=== PATIENT | male | born 1995 | race Caucasian/White ===

== ENCOUNTER 2020-02-22 10:41 | Emergency (ER) | payer OTHER, MEDICAID, SELFPAY ==
[2020-02-22 10:43] VITALS: BP 167/119; PULSE 102; RESP 17; TEMP 37.1; O2SAT 100; BMI 30.5
[2020-02-22] MEDS: 0.9% Normal Saline 1,000 ML 1000 ML IV (11:10)
[2020-02-22] MEDS: Ondansetron 4 MG/2 ML Vial IV (11:15)
[2020-02-22] MEDS: Morphine 4 MG/ML Syringe IV (11:16)
[2020-02-22] MEDS: Ketorolac 15 MG/ML Vial IV (11:16)
[2020-02-22 11:41] VITALS: BP 187/103; PULSE 104; RESP 18
[2020-02-22] MEDS: HYDROmorphone 1 MG/ML Syringe IV (11:57)
--- NOTE | 2020-02-22 13:11 | ED.VISSUMM ---
- ER Visit Summary Date of Service: 02/22/20 Chief Complaint: Left flank pain History of Present Illness: The patient is a [address] Garcia. He does have a history of kidney stones. He reports he has left flank pain that began abruptly yesterday evening. Says sharp, throbbing pain is 10 of 10 in severity currently and at worst. Is worsened by nothing. Is taken Advil without relief. Is had nausea vomiting. No dysuria or frequency. No hematuria. His last bowel was yesterday. No matter medication. Patient was seen at [facility] emergency department. He had a work-up undertaken that showed him to have a large left ureteral stone. He states that they offered him admission there, but he lives in [place] and wanted to come down here. He did not get his medications filled on the way here. Physical Examination: Vitals: Stable. Afebrile. General: Well-nourished and well-developed. Head: Normocephalic atraumatic. Neck: Supple, no lymphadenopathy. No JVD. Nontender. Cardiovascular: Regular rate and rhythm. No murmurs. Respiratory: No respiratory distress. Clear to auscultation bilaterally. Abdominal: Soft, mild left upper quadrant tenderness palpation, nondistended, normal bowel sounds. No guarding, rebound, or peritoneal signs. Back: Mild left CVA tenderness. Extremities: Nontender, no edema. Skin: Normal color, no rash. Neurologic: Alert and oriented ?3. Cranial nerves II through XII are intact. Normal strength and sensation. Psych: Normal affect. Test Results: Labs from [facility] showed a CBC with a white count of 12.4. Chem-7 with a glucose of 110 and creatinine 1.27. LFTs were marked for total protein of 8.6. UA showed 2-5 white blood cells, 7-10 red blood cells, 6-[address] showed moderate left hydronephrosis with a 1.3 cm stone in the proximal ureter at the level of L3. Also showed a 1.5 cm area of inflammatory stranding adjacent to the proximal sigmoid colon, possibly epiploic appendagitis. Emergency Department Course and Treatment: Patient had an IV placed. He is given morphine, Dilaudid, Toradol, and Zofran IV. He is resting comfortably and would like to go home. I discussed him that he will not pass the stone on his own. Treatment Plan: Patient was discussed with Dr. Salcedo. He will be discharged with Percocet, naproxen, Zofran, and Cipro which he got at [facility]. Instructed to call Dr. Salcedo in 2 days to be seen in the office and set up surgery. Return to the emergency department for any worsening symptoms. Disposition: To home in improved and stable condition. Impression: 1 1. Left ureterolithiasis. This note was generated with [email or web address] dictation software. It may contain incorrect words, spelling, and punctuation that were not noted in review of the chart prior to signing ED Disposition - Plan for ED Patient: Disposition: Home or Assisted Living Instructions: ED Renal Stone w Colic Prescriptions: Naproxen [Naprosyn] 500 mg PO BID #14 tab Prescription Printed Ondansetron [Zofran Odt] 4 mg PO Q8H PRN PRN #10 tab PRN Reason: Nausea Prescription Printed Referrals: Franko Salcedo MD [STAFF PHYSICIAN] - 2 Days
[2020-02-22 13:30] VITALS: RESP 16
== END 2020-02-22 13:32 | disposition home or self-care (01) ==
LOC: ED 11:46
PROVIDERS: Emergency Provider Emergency Medicine; PCP Student in an Organized Health Care Education/Training Program
DX: N13.2 Hydronephrosis with renal and ureteral calculous obstruction (principal); I10 Essential (primary) hypertension; F41.9 Anxiety disorder, unspecified; F32.9 Major depressive disorder, single episode, unspecified; Z87.442 Personal history of urinary calculi; Z79.899 Other long term (current) drug therapy; F17.200 Nicotine dependence, unspecified, uncomplicated
CPT/HCPCS: 96361; 96374; 96375; 99283; J7030; J2405

== ENCOUNTER 2020-02-27 02:14 | Emergency (ER) | payer OTHER, MEDICAID, SELFPAY ==
[2020-02-27 02:16] VITALS: BP 188/122; PULSE 95; RESP 20; TEMP 37; O2SAT 98; BMI 31.4
[2020-02-27] MEDS: Ondansetron 4 MG/2 ML Vial IV (02:35)
[2020-02-27] MEDS: 0.9% Normal Saline 1,000 ML 1000 ML IV (02:35)
[2020-02-27] MEDS: HYDROmorphone 1 MG/ML Syringe IV ×2 (02:35→03:47)
--- NOTE | 2020-02-27 02:37 | ED.VISSUMM ---
- ER Visit Summary Date of Service: 02/27/20 Chief Complaint: Left flank pain History of Present Illness: The patient is a [address] Garcia and Dr. Salcedo. He has a 1.3 cm left ureteral stone that was diagnosed 5 days ago at [facility] in [place]. Has an appointment to see Dr. Salcedo today. States that he ran out of Percocet 2 days ago. He has sharp pain that is currently 8 out of 10 in severity. It is 10 out of 10 at worst. Is relieved by Percocet. Is worsened by nothing. Is had nausea without vomiting. No diarrhea. His last bowel was 2 days ago. Normal hematochezia. No dysuria or frequency. No fever or chills. Physical Examination: Vitals: Stable. Afebrile. General: Well-nourished and well-developed. Head: Normocephalic atraumatic. Neck: Supple, no lymphadenopathy. No JVD. Nontender. Cardiovascular: Regular rate and rhythm. No murmurs. Respiratory: No respiratory distress. Clear to auscultation bilaterally. Abdominal: Soft, nontender, nondistended, normal bowel sounds. No guarding, rebound, or peritoneal signs. Back: Mild left CVA tenderness to percussion. Extremities: Nontender, no edema. Skin: Normal color, no rash. Neurologic: Alert and oriented ?3. Cranial nerves II through XII are intact. Normal strength and sensation. Psych: Normal affect. Test Results: CBC shows white count 12.9 with 17 segmented neutrophils and 13 monocytes. Chem-7 shows a chloride 109, glucose 109, creatinine 1.8. This was 1.275 days ago. UA is negative. Emergency Department Course and Treatment: Patient had an IV placed. Is given liter normal saline. He was given Zofran and Dilaudid IV. He is resting more comfortably. Treatment Plan: Patient will be discharged prescription for 12 more Percocet and Zofran.. Instructed to follow-up Dr. Salcedo today as previously scheduled. Return to the emergency department for any worsening symptoms. Disposition: To home in improved and stable condition. Impression: 1. Left ureterolithiasis. This note was generated with [employer] software. It may contain incorrect words, spelling, and punctuation that were not noted in review of the chart prior to signing ED Disposition - Plan for ED Patient: Instructions: ED Renal Stone w Colic Prescriptions: Oxycodone HCl/Acetaminophen [Percocet 5/325] 1 tab PO Q6H PRN PRN 3 Days #12 tab PRN Reason: Pain Prescription Printed Ondansetron [Zofran Odt] 4 mg PO Q8H PRN PRN #10 tab PRN Reason: Nausea Prescription Printed Referrals: Franko Salcedo MD [STAFF PHYSICIAN] - Keep Boris appointment
[2020-02-27 02:48] LABS: Bacteria 0 SEEN /hpf (None Seen); Mucous, Urine 0 SEEN /hpf (<or=2+)
[2020-02-27 02:49] LABS: Absolute Lymphocyte Count 2.23 X10^3/uL (0.83-4.51); Absolute Neutrophil Count 8.6 X10^3/uL (2.0-7.7); Basophil# 0.05 X10^3/uL; Basophil% 0.4 % (0-1); Eosinophil# 0.22 X10^3/uL; Eosinophils% 1.7 % (0-5); Hematocrit 42.9 % (40-54); Hemoglobin 14.5 g/dL (13.0-16.5); Lymphocyte # 2.23 X10^3/ul (4.0); Lymphocyte % 17.4 % (19-41); Mean Corp Hgb Conc 33.8 g/dL (32-36); Mean Corpuscular Hgb 30.9 pg (27.0-32.0); Mean Corpuscular Volume 91.5 fL (80-94); Monocyte# 1.65 X10^3/uL; Monocyte% 12.8 % (0-10); NRBC Flagged by Analyzer 0 % (0-5); Neutrophil # 8.62 X10^3/uL (2.7-7.7); Neutrophil % 67.1 % (47-70); POSITIVE DIFFERENTIAL YES; Platelet Count 276 K/mm3 (150-450); RBC Distribution Width CV 12.5 % (11.6-14.6); RBC Distribution Width SD 41.2 fl (35.1-43.9); Red Blood Count 4.69 M/mm3 (4.6-6.2); White Blood Count 12.9 K/mm3 (4.4-11.0)
[2020-02-27 02:50] LABS: Differential Indicated SCAN CRITERIA MET
[2020-02-27 02:51] LABS: Color, Urine Yellow (Yellow); Glucose, Dipstick Normal (Normal); Ketone-Dipstick Negative (Negative); Leukocyte Esterase-Dipstick Negative /ul (Negative); Nitrite-Dipstick Negative (Negative); Occult Blood-Urine Negative /ul (Negative); Protein-Dipstick 15 mg/dl (Negative); Urine Bilirubin Dipstick Negative (Negative); Urine Clarity Sl. Cloudy (Clear); Urine Urobilinogen Normal (Normal)
[2020-02-27 03:03] LABS: Anion Gap 3 (5-15); BUN 17 mg/dL (7-18); BUN/Creat Ratio 9.4 RATIO (10-20); Calcium,Total 9.2 mg/dL (8.5-10.1); Chloride 108 mmol/L (98-107); EST Glomerular Filtration Rate 49 mL/min (>60); Est Glom Filt Rate - Afr Amer 59 mL/min (>60); Estimated Creatinine Clearance 72.94 ml/min; Glucose 109 mg/dL (74-106); Potassium 3.6 mmol/L (3.5-5.1); Sodium Level 139 mmol/L (136-145)
[2020-02-27 03:18] LABS: Red Blood Cells-Urine 0-5 SEEN /hpf (0-5); Squamous Epithelial Cells - UA 0-5 SEEN /hpf (0-5); White Blood Cells 0-5 SEEN /hpf (0-5)
[2020-02-27 03:42] LABS: Reactive Lymphocyte 1+
[2020-02-27 04:28] VITALS: PULSE 92; RESP 18; O2SAT 98
[2020-02-27 05:09] VITALS: BP 168/90; PULSE 89; RESP 18; O2SAT 97
[2020-02-27 10:30] LABS: Pathologist Review Reviewed
== END 2020-02-27 05:10 | disposition home or self-care (01) ==
LOC: ED 02:48
PROVIDERS: Emergency Provider Emergency Medicine; PCP Student in an Organized Health Care Education/Training Program
DX: N20.1 Calculus of ureter (principal)
CPT/HCPCS: 80048; 81001; 85025; 96361; 96374; 96375; 99283; A4216; J2405

== ENCOUNTER 2020-02-28 08:37 | Day surgery (SDC) | payer OTHER, MEDICAID, SELFPAY ==
[2020-02-27 02:16] VITALS: BMI 31.4
[2020-02-28] VITALS (8 sets, daily range): BP systolic 145–161; BP diastolic 91–100; PULSE 98–120; RESP 16–18; TEMP 36.3–36.7; O2SAT 94–100; BMI 30.9
--- NOTE | 2020-02-28 08:20 | RAD_ITS ---
STUDY: X-RAY - ABDOMEN/PELVIS REASON FOR EXAM: Male, 24 years old. PRE OP KIDNEY STONE TECHNIQUE: Single AP view of the abdomen / pelvis. COMPARISON: Comparison is made with prior study dated August 02, 2016. FINDINGS: There is a moderate amount of colonic fecal material. There is a 1.4 cm x 0.7 cm calcification overlying the transverse process of the L3 vertebrae on the left side suggestive of a proximal left ureteral calculus. Normal soft tissue structures. Normal visualized osseous structures. RAD/Abdomen Single View IMPRESSION: Findings suggestive of a 1.4 cm x 0.7 cm calculus in the proximal left ureter. Electronically Signed: Zachary Manrique, at 9:07 EDT , Service support ,
[2020-02-28] MEDS: Lactated Ringers 1,000 ML 100 ML IV ×2 (09:37→12:27)
[2020-02-28] MEDS: Cefazolin 2 GM in 0.9% Normal Saline 100 ML IV (10:44)
--- NOTE | 2020-02-28 10:47 | DCINST_ITS ---
Discharge Diet: Light diet - advance as tolerated Discharge Activity: Return to Normal Activity, May not drive while taking narcotic pain medications. Call your doctor if your incision/area has: Sudden Increased Bleeding Call your doctor if you observe: Fever of 101 or Higher, Uncontrolled pain Suture Line Care: Avoid Pulling/Pushing, Avoid Pinching/Bending Allergies/Adverse Reactions: Allergies No Known Allergies Allergy (Verified 02/27/20 02:14) Medications to take at Discharge Fluoxetine [Prozac] 20 mg PO DAILY 05/24/16 buPROPion XL [Wellbutrin Xl] 300 mg PO DAILY 08/03/16 Naproxen [Naprosyn] 500 mg PO BID #14 tab 02/22/20 Ondansetron [Zofran Odt] 4 mg PO Q8H PRN PRN #10 tab 02/22/20 Oxycodone HCl/Acetaminophen [Percocet 5/325] 1 tab PO Q6H PRN PRN 3 Days #12 tab 02/27/20 Primary Care Physician: Jose Cruz Garcia DO [Primary Care Provider] - Test Results: Test results from this visit will be discussed in further detail at your follow- up appointment, if applicable. Please Follow Up With: Franko Salcedo MD When: please call to make an appointment.
--- NOTE | 2020-02-28 10:50 | HP.PCM_ITS ---
History of Present Illness Date of Admission: 02/28/20 Chief Complaint: Obstructing large left ureteral calculi The patient is a 24 year old male who has a large obstructing ureteral calculi in the proximal left ureter plan for treatment and stent placement today Past Medical History Allergies No Known Allergies Allergy (Verified 02/27/20 02:14) Home Medications: Ambulatory Orders Medication Instructions Recorded Fluoxetine [Prozac] 20 mg PO DAILY 05/24/16 buPROPion XL [Wellbutrin Xl] 300 mg PO DAILY 08/03/16 Naproxen [Naprosyn] 500 mg PO BID #14 tab 02/22/20 Ondansetron [Zofran Odt] 4 mg PO Q8H PRN PRN #10 tab 02/22/20 Oxycodone HCl/Acetaminophen 1 tab PO Q6H PRN PRN 3 Days #12 tab 02/27/20 [Percocet 5/325] Ciprofloxacin [Cipro] 500 mg PO BID #6 tab 02/28/20 Hydrocodone/Acetaminophen [[place] 1 each PO Q4H PRN PRN 5 Days #20 02/28/20 5-325 Tablet] tablet Surgical History: no surgical history Smoking Status: Current every day smoker Review of Systems Constitutional: Denies: Chills, Fever, Weight Change HEENT: Denies: Head Aches, Sinus Congestion, Sinus Drainage Cardiovascular: Denies: Chest Pain, Palpitations Respiratory: Denies: Cough, Shortness of breath at rest, Sputum production Gastrointestinal: Denies: Abdominal Pain, Nausea, Vomiting Genitourinary: Denies: Dysuria Musculoskeletal: Denies: Joint Pain, Joint Tenderness Skin: Denies: Rash, Wounds Neurological: Denies: Numbness, Tingling, Focal weakness Psychiatric: Denies: Anxiety, Depression, Homicidal Ideations, Suicidal Ideations Hematologic/ Lymphatic: Denies: Easy Bruising, Easy Bleeding VTE Information - Inpt Only VTE Present on Admission: No VTE Mechan Device Prophylaxis: SCD's - Physical Exam Vitals/I&O's: Vital Signs Temp Pulse Resp BP Pulse Ox 97.3 F L 98 16 161/100 H 100 02/28/20 09:23 02/28/20 09:23 02/28/20 09:23 02/28/20 09:23 02/28/20 09:23 Oxygen Delivery Method Room Air Weight: 109.5 kg Body Mass Index (BMI) 30.9 General: Alert, Oriented x3, Cooperative HEENT: Atraumatic, PERRLA, EOMI, Normocephalic Neck: Supple, No JVD, Negative Carotid Bruits Lungs: Clear to auscultation, Normal air movement Cardiovascular: Regular rate, No murmurs Abdomen: Bowel Sounds Present, Soft, Non Tender Extremities: No edema, Capillary Refill Less than 3 Seconds Skin: No rashes, No breakdown Musculoskeletal: No Tenderness to Palpation of Joints or Extremities Neurological: Cranial nerves II-XII grossly intact Psych/Mental Status: Normal Affect, Appropriate Current Medications Acetaminophen (Tylenol) 650 mg PO Q4H PRN PRN PRN Reason: Pain Score 1-5/10 Lactated Ringer's () 1,000 mls @ 100 mls/hr IV .Q10H VONNIE Last Admin: 02/28/20 09:37 Dose: 100 mls/hr Documented by: Ketorolac Tromethamine (Toradol (Bkc)) 15 mg IV X1 ONE Stop: 02/28/20 10:49 Metoclopramide HCl (Reglan) 10 mg IV X1 PRN PRN Reason: NAUSEA/VOMITING Ondansetron HCl (Zofran) 4 mg IV X1 PRN PRN Reason: NAUSEA Oxycodone HCl (Oxyir) 5 - 10 mg PO Q6H PRN PRN PRN Reason: Pain Score 4-10/10 Assessment/Plan 24-year-old male with obstructing large stone in the proximal left ureter plan for cystoscopy stent placement and left ESWL he understands he may need multiple procedures. Essential Procedure Criteria Procedure Essential: Yes Criteria Note: On 02/04/2020 the [place] [facility] ([facility]) Public Order signed by [facility] Director Jazzmine Collier M.D., regarding the Management of Non- Essential Surgeries and Procedures for the purpose of preserving Personal Protective Equipment (PPE) and critical hospital capacity and resources within [place] went into effect as of 02/05/2020 at 5:00PM. According to the [facility] Public Order: This action will remain in full force and effect until the State of Emergency declared by the Governor no longer exists or the Director of the [facility] rescinds or modifies this Order.. This [facility] order stated all non-essential or elective surgeries and procedures that utilize PPE should be delayed unless there is undue risk to the current or future health of a patient. After reviewing the aforementioned [facility] Public Order and the patients clinical case, I have determined that the scheduled procedure meets the criteria to go forward. Risk to Patient if Procedure Delayed: Threat of permanent dysfunction of an extremity or organ system - Kidney dysfunction.
--- NOTE | 2020-02-28 12:07 | OP.PCM_ITS ---
Report of Operation Date of Procedure: 02/28/20 Pre-Operative Diagnosis: Left UPJ calculus large Post-Operative Diagnosis: Same Surgery/Procedure Performed:: Cystoscopy left stent placement and left extracorporal shockwave lithotripsy Description of Surgical Findings:: The patient presents to the hospital today for treatment of a calculus with shockwave lithotripsy. The patient understands it is possible that a stent may need to assist in the fragmentation and displacement of the stone in order to alleviate obstruction. We discussed how the procedure is done expected outcomes. The Patient understands it is possible the stone may not break successfully and may require further procedures. We talked about the risks of the shockwave lithotripsy including risk of infection, bleeding, failure to break the stone, bleeding from the kidney or retroperitoneal bleeding and a very rare risk of a blood transfusion. We discussed the risk of anesthesia. All the patient's questions were addressed and answered before the surgery and the pat ient signed the consent form. The patient was taken back to the operating room and after smooth induction of anesthesia was transferred onto the lithotripter table, fluoroscopy was used to identify the stone and then used triangulation technique to make sure the stone was in the F2 focal point of the lithotripter. Shockwave lithotripsy was started at a rate of 90/min and a total of 4000 shockwaves were delivered to the stone. During the treatment the stone was monitored with fluoroscopy to ensure that the stone maintained in the treatment zone and fragmentation was monitored under fluoroscopy. Lithotripsy power used during the treatment was modified according to the fragmentation protocol and ranged from 5 to 9 kV depending on the location of the stone within the ureter and the kidney. During the treatmeent it was determined that aa stent was necessary, the patient was prepped and draped in usual sterile fashion, we went into the bladder through the urethra with a rigid cystoscope ureteroscope and identified the left orifice, a wire was advanced up into the kidney and then over the wire a stent was placed. After the completion of the therapy session the patient's anesthetic was reversed and was taken back to the PACU in stable condition. Type of Anesthesia:: General Drains: left stent 6 x 26cm - Admit VTE Documentation VTE Present on Admission: No VTE Mechan Device Prophylaxis: SCD's
[2020-02-28] MEDS: Ketorolac 15 MG/ML Vial IV (12:21)
== END 2020-02-28 14:18 | disposition home or self-care (01) ==
LOC: SDC 08:40 → AC 08:43
PROVIDERS: PCP Student in an Organized Health Care Education/Training Program; Referring Provider Urology; Visit Provider Urology
PROC: (CPT 50590; principal; 2020-02-28 10:10)
DX: N20.1 Calculus of ureter (principal); F41.9 Anxiety disorder, unspecified; F32.9 Major depressive disorder, single episode, unspecified; Z87.442 Personal history of urinary calculi; Z79.899 Other long term (current) drug therapy; F17.200 Nicotine dependence, unspecified, uncomplicated
CPT/HCPCS: 50590; 52332; 74018; J7120; C1769; C2617; J2405

== ENCOUNTER → 2020-03-03 14:45 | Outpatient (CLI) | payer OTHER, MEDICAID, SELFPAY ==
[2020-02-28 09:23] VITALS: BMI 30.9
--- NOTE | 2020-03-03 15:05 | RAD_ITS ---
STUDY: X-RAY - ABDOMEN/PELVIS REASON FOR EXAM: Male, 24 years old. Follow up left sided kidney stone TECHNIQUE: Single AP view of the abdomen / pelvis. COMPARISON: Comparison is made with prior study dated February 28, 2020. FINDINGS: There is a moderate amount of colonic fecal material. A left-sided double-J stent catheter is seen. The proximal tip is in the left renal pelvis and the distal tip is in the left side of the bladder. The previously seen calcification in the region of the left renal pelvis has been disrupted. There is a 2.5 cm x 0.5 cm calcification in the region of the proximal portion of the left ureter just distal to the renal pelvis. A fragment of calculus is also seen in the mid portion of the left kidney measuring 5.7 mm. Normal soft tissue structures. Normal visualized osseous structures. RAD/Abdomen Single View IMPRESSION: Double J stent placement. Disruption of the left renal calculus. Residual fragments are seen in the proximal portion of left ureter as well as in the midportion of the left kidney. Electronically Signed: Zachary Manrique, at 15:20 EDT , Service support ,
== END ==
PROVIDERS: PCP Student in an Organized Health Care Education/Training Program; Referring Provider Urology; Visit Provider Urology
DX: N20.1 Calculus of ureter (principal)
CPT/HCPCS: 74018

== ENCOUNTER 2020-03-04 09:16 | Day surgery (SDC) | payer OTHER, MEDICAID, SELFPAY ==
[2020-02-28 09:23] VITALS: BMI 30.9
[2020-03-04] VITALS (7 sets, daily range): BP systolic 121–157; BP diastolic 83–104; PULSE 73–117; RESP 16; TEMP 36.4–36.6; O2SAT 97–100; BMI 30.9
[2020-03-04] MEDS: Lactated Ringers 1,000 ML 100 ML IV (10:03)
[2020-03-04] MEDS: Cefazolin 2 GM in 0.9% Normal Saline 100 ML IV (12:41)
--- NOTE | 2020-03-04 12:46 | DCINST_ITS ---
Discharge Diet: Light diet - advance as tolerated Discharge Activity: Return to Normal Activity Call your doctor if your incision/area has: Sudden Increased Bleeding Call your doctor if you observe: Fever of 101 or Higher Suture Line Care: Avoid Pulling/Pushing, Avoid Pinching/Bending Allergies/Adverse Reactions: Allergies No Known Allergies Allergy (Verified 02/27/20 02:14) Medications to take at Discharge Fluoxetine [Prozac] 20 mg PO DAILY 05/24/16 buPROPion XL [Wellbutrin Xl] 300 mg PO DAILY 08/03/16 Naproxen [Naprosyn] 500 mg PO BID #14 tab 02/22/20 Ondansetron [Zofran Odt] 4 mg PO Q8H PRN PRN #10 tab 02/22/20 Ciprofloxacin [Cipro] 500 mg PO BID #6 tab 02/28/20 Hydrocodone Bitart/Apap 5-325 [[place] 5MG-325MG] 1 - 2 tab PO Q4H PRN PRN 03/04/20 Losartan Potassium [Cozaar] 50 mg PO DAILY 03/04/20 Primary Care Physician: Jose Cruz Garcia DO [Primary Care Provider] - Test Results: Test results from this visit will be discussed in further detail at your follow- up appointment, if applicable. Please Follow Up With: Franko Salcedo MD When: please call to make an appointment.
--- NOTE | 2020-03-04 12:48 | HP.PCM_ITS ---
History of Present Illness Date of Admission: 03/04/20 Chief Complaint: left kidney stone status post ESWL with significant fragments. The patient is a 24 year old For the very large stone in the left kidney he was made aware that very likely would need to procedures with such a large stone regardless of the procedure approach except for a percutaneous procedure but he did declined having a percutaneous procedure. So we proceeded with the shockwave lithotripsy and now he comes back for stage II ureteroscopy and laser of the remaining fragments Past Medical History Allergies No Known Allergies Allergy (Verified 02/27/20 02:14) Home Medications: Ambulatory Orders Medication Instructions Recorded Fluoxetine [Prozac] 20 mg PO DAILY 05/24/16 buPROPion XL [Wellbutrin Xl] 300 mg PO DAILY 08/03/16 Naproxen [Naprosyn] 500 mg PO BID #14 tab 02/22/20 Ondansetron [Zofran Odt] 4 mg PO Q8H PRN PRN #10 tab 02/22/20 Ciprofloxacin [Cipro] 500 mg PO BID #6 tab 02/28/20 Hydrocodone Bitart/Apap 5-325 1 - 2 tab PO Q4H PRN PRN 03/04/20 [[place] 5MG-325MG] Losartan Potassium [Cozaar] 50 mg PO DAILY 03/04/20 Surgical History: no surgical history Smoking Status: Current every day smoker Review of Systems Constitutional: Denies: Chills, Fever, Weight Change HEENT: Denies: Head Aches, Sinus Congestion, Sinus Drainage Cardiovascular: Denies: Chest Pain, Palpitations Respiratory: Denies: Cough, Shortness of breath at rest, Sputum production Gastrointestinal: Denies: Abdominal Pain, Nausea, Vomiting Genitourinary: Denies: Dysuria Musculoskeletal: Denies: Joint Pain, Joint Tenderness Skin: Denies: Rash, Wounds Neurological: Denies: Numbness, Tingling, Focal weakness Psychiatric: Denies: Anxiety, Depression, Homicidal Ideations, Suicidal Ideations Hematologic/ Lymphatic: Denies: Easy Bruising, Easy Bleeding VTE Information - Inpt Only VTE Present on Admission: No VTE Mechan Device Prophylaxis: SCD's - Physical Exam Vitals/I&O's: Vital Signs Temp Pulse Resp BP Pulse Ox 97.9 F 105 H 16 157/104 H 100 03/04/20 09:45 03/04/20 09:45 03/04/20 09:45 03/04/20 09:45 03/04/20 09:45 Oxygen Delivery Method Room Air Weight: 109.225 kg Body Mass Index (BMI) 30.9 General: Alert, Oriented x3, Cooperative HEENT: Atraumatic, PERRLA, EOMI, Normocephalic Neck: Supple, No JVD, Negative Carotid Bruits Lungs: Clear to auscultation, Normal air movement Cardiovascular: Regular rate, No murmurs Abdomen: Bowel Sounds Present, Soft, Non Tender Extremities: No edema, Capillary Refill Less than 3 Seconds Skin: No rashes, No breakdown Musculoskeletal: No Tenderness to Palpation of Joints or Extremities Neurological: Cranial nerves II-XII grossly intact Psych/Mental Status: Normal Affect, Appropriate Current Medications Lactated Ringer's () 1,000 mls @ 100 mls/hr IV .Q10H VONNIE Last Admin: 03/04/20 10:03 Dose: 100 mls/hr Documented by: Ketorolac Tromethamine (Toradol (Bkc)) 15 mg IV X1 ONE Stop: 03/04/20 12:48 Metoclopramide HCl (Reglan) 10 mg IV X1 PRN PRN Reason: NAUSEA/VOMITING Oxycodone HCl (Oxyir) 5 - 10 mg PO Q6H PRN PRN PRN Reason: Pain Score 4-10/10 Assessment/Plan laser stone, 2nd stage procedure Essential Procedure Criteria Procedure Essential: Yes Criteria Note: On 02/04/2020 the [facility] [place] of [facility] ([facility]) Public Order signed by [facility] Director Jazzmine Collier M.D., regarding the Management of Non- Essential Surgeries and Procedures for the purpose of preserving Personal Protective Equipment (PPE) and critical hospital capacity and resources within [place] went into effect as of 02/05/2020 at 5:00PM. According to the [facility] Public Order: This action will remain in full force and effect until the State of Emergency declared by the Governor no longer exists or the Director of the [facility] rescinds or modifies this Order.. This [facility] order stated all non-essential or elective surgeries and procedures that utilize PPE should be delayed unless there is undue risk to the current or future health of a patient. After reviewing the aforementioned [facility] Public Order and the patients clinical case, I have determined that the scheduled procedure meets the criteria to go forward. Risk to Patient if Procedure Delayed: Risk of rapidly worsening to severe symptoms
--- NOTE | 2020-03-04 13:38 | PCM.OPRPT ---
Report of Operation Date of Procedure: 03/04/20 Pre-Operative Diagnosis: Large left UPJ stone status post ESWL residual fragments plan for second stage laser Post-Operative Diagnosis: Same Surgery/Procedure Performed:: Left ureteroscopy laser of residual fragments, left retrograde pyelogram left interpretation fluoroscopic measures, left stent placement Description of Surgical Findings:: Patient presented to the hospital for treatment of a calculus in the left proximal ureter status post prior shockwave lithotripsy. Patient was well aware that he would probably need more than one procedure to treat this very large stone. We discussed how the procedure is done what to expect afterwards he probably will need a stent. We discussed the discomfort that the stent would cause, burning with urination, frequency, urgency, pain in the kidney, blood in the urine. We also discussed the risk of the procedure including bleeding and infection and the risk of anesthesia. We discussed the very rare risk of injury or scar tissue development in the ureter after this procedure. We also discussed the possibility that the stone would not be able to be treated completely and he may need multiple procedures. After discussion with the patient in the preoperative area also I saw the patient in the office discussing the same outcomes the patient signed the consent form, and all the patient's questions were answered. The patient was taken back to the operating room after smooth induction of general anesthesia and the patient was placed supine on the table. We then repositioned the patient in dorsolithotomy position with the legs in stirrups. We made sure all the patient's pressure points were padded. The patient had SCDs on for DVT prophylaxis and was loaded with IV antibiotics prior to the procedure. Imaging was reviewed if available. I went into the bladder with a 21 [place] rigid cystoscopy ureteroscopy after gentle dilation of the urethra. The urethra findings were normal. The prostate findings were normal. Inside the bladder the trigone was inspected left and right vital of the bladder and posterior and dome of the bladder was inspected and the main findings in the bladder was . I then cannulated the left ureter and used a wire to go up to the ureter. I then left the wire in place and went over the wire with a ureteroscope. I was able to reach the stone fragments in the proximal ureter and kidney and successfully lasered the stone using a laser fiber and perform laser lithotripsy on the stone until the stone broke up into tiny fragments. After successful complete lasering of the stone and its fragments then I worked my way out of the ureter and over the wire I then loaded up a stent and advanced a stent up into the left kidney. A retrograde pyelogram was then performed looking at the contrast images to assist in placement of the stent next and confirmed the location of the kidney and the ureter I then pulled on the wire and the stent coiled in the kidney and bladder in good position. I then drained the bladder with the cystoscope the patient's anesthetic was reversed he will be given pain medicine antibiotics and instructions to call the office for an appointment to remove the stent. Patient's anesthetic is being reversed and is taken back to the PACU in stable condition. Type of Anesthesia:: General Drains: stent placement left side - Admit VTE Documentation VTE Present on Admission: No VTE Mechan Device Prophylaxis: SCD's
[2020-03-04] MEDS: Ketorolac 15 MG/ML Vial IV (13:58)
== END 2020-03-04 16:07 | disposition home or self-care (01) ==
LOC: SDC 09:17 → AC 09:18
PROVIDERS: PCP Student in an Organized Health Care Education/Training Program; Referring Provider Urology; Visit Provider Urology
PROC: 0TJ98ZZ Inspection of Ureter, Via Natural or Artificial Opening Endoscopic (ICD-10-PCS; CPT 52352; principal; 2020-03-04 11:10)
DX: Z48.816 Encounter for surgical aftercare following surgery on the genitourinary system (principal); N20.0 Calculus of kidney; I10 Essential (primary) hypertension; F41.9 Anxiety disorder, unspecified; F32.9 Major depressive disorder, single episode, unspecified; Z79.899 Other long term (current) drug therapy; F17.200 Nicotine dependence, unspecified, uncomplicated
CPT/HCPCS: 52356; 76000; J7120; C1769; C2617; J2405

== ENCOUNTER 2020-10-08 02:49 | Emergency (ER) | payer MEDICAID, SELFPAY ==
[2020-03-04 09:45] VITALS: BMI 30.9
[2020-10-08 02:51] VITALS: BP 161/95; PULSE 107; RESP 17; TEMP 36.8; O2SAT 97; BMI 31.6
--- NOTE | 2020-10-08 03:39 | ED.DCSUM_ITS ---
History of Present Illness Chief Complaint: Cellulitis Informant: Patient Narrative: 25-year-old male presents with area of erythema on the left posterior distal calf which has been present for about 2 days. He states it was initially a small red spot which has grown. He does not remember any injury. He has had no scratches or abrasions. He denies any bug bites. He states it is slightly painful. He has had no systemic signs such as nausea, vomiting, fever, chills. 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 He has tried to keep it clean and soaked it in Epsom salts and has has not made it better. Past Medical History - Allergies and Home Meds Allergies/Adverse Reactions: Allergies No Known Allergies Allergy (Verified 10/08/20 02:49) Primary Care Physician: Jose Cruz Garcia DO [Primary Care Provider] - Past Medical History: - - Anxiety, hypertension Surgical History: noncontributory Lives: Alone Smoking Status: Former smoker Alcohol: None Drugs: None Review of Systems General: Denies: Chills, Fever, Sweats Eyes: Denies: Visual changes - bilaterally, Diplopia ENT: Denies: Rhinorrhea, Sore throat Cardiovascular: Denies: Chest pain, Palpitations Respiratory: Denies: Dyspnea, Cough, Dyspnea on exertion Gastrointestinal: Denies: Abdominal pain, Nausea, Vomiting, Diarrhea, Melena, Hematochezia Genitourinary: Denies: Dysuria, Hematuria, Frequency Musculoskeletal: Reports: Extremity Pain - Left posterior distal calf pain adjacent to area of erythema. Denies: Myalgias Skin: Reports: Rash - Erythema to the left distal posterior calf Neurological: Denies: Headache, Weakness, Numbness Physical Exam Vital Signs/Narrative: Vital Signs Temp Pulse Resp BP Pulse Ox 10/08/20 02:51 98.2 F 107 H 17 161/95 H 97 General: Well nourished, No Acute Distress Head: Normocephalic, Atraumatic Eyes: Perrl, EOMI ENT: Moist mucous membranes, No rhinorrhea Cardiovascular: Regular rate, Regular rhythm Respiratory: No distress, CTA bilaterally Extremities: Tenderness - Mild tenderness over left distal calf over adjacent area of erythema. Skin: Rash - 6 x 4 cm area of erythema on the left posterior calf. No crepitance. No abscess. Minimally tender to palpation.. Negative for: Cyanosis, Diaphoresis Neurological: Alert, Oriented x3 Psychological: Normal affect, Normal Mood Diagnostic/Tx/Re-eval - Medical Decision Making Patient has obvious cellulitis to the left posterior calf. He has not had any systemic signs or symptoms. He does not believe he has a history of MRSA. Patient will be started on doxycycline for home. He is given wound care instructions as well as return precautions. Patient is stable for discharge at this time. Impression: 1. Left calf cellulitis ED Disposition - Plan for ED Patient: Disposition: Home or Assisted Living Instructions: Cellulitis Prescriptions: Doxycycline 100 mg PO BID #20 cap Transmission Status: Received by [id number] Referrals: Jose Cruz Garcia DO [Primary Care Provider] -
[2020-10-08] MEDS: Doxycycline 100 MG CAPSULE PO (03:45)
== END 2020-10-08 03:51 | disposition home or self-care (01) ==
PROVIDERS: Emergency Provider Student in an Organized Health Care Education/Training Program; PCP Student in an Organized Health Care Education/Training Program
DX: L03.116 Cellulitis of left lower limb (principal); I10 Essential (primary) hypertension; F41.9 Anxiety disorder, unspecified; Z79.899 Other long term (current) drug therapy; Z87.891 Personal history of nicotine dependence
CPT/HCPCS: 99282

== ENCOUNTER 2021-10-04 22:07 | Emergency (ER) | payer MEDICAID, SELFPAY ==
[2021-10-04 22:07] VITALS: BP 164/113; PULSE 119; RESP 16; TEMP 36.2; O2SAT 100; BMI 28.8
--- NOTE | 2021-10-04 23:03 | RAD_ITS ---
EXAM: XR LEFT ELBOW COMPLETE, 3 OR MORE VIEWS : 1995 CLINICAL INDICATION: pain TECHNIQUE: Frontal, lateral and oblique views of the left elbow. This report was created using [employer] report generation technology. COMPARISON: None. FINDINGS: BONES/JOINTS: Unremarkable. There is no displacement of the anterior or posterior fat pads. No acute fracture. No subluxation. Normal alignment. Preservation of the joint space. No destructive or sclerotic lesions. SOFT TISSUES: Unremarkable. No soft tissue swelling or gas. No radiopaque foreign body. RAD/Elbow min 3 Views IMPRESSION: Negative left elbow. at 2344 Reported and signed by: Héctor Grove MD Electronically Signed: Héctor Grove MD at 23:42 EST Tel , Service support ,
--- NOTE | 2021-10-04 23:19 | EX.ED.UPPERE ---
HPI History of Present Illness Chief Complaint: Upper Extremity Injury Detail of Chief Complaint: Unable to straighten left elbow Informant: patient Onset/Context/Timing Onset: Days (3 days) Current Severity: Mild Maximum Severity: Mild Narrative Narrative: Patient presents secondary to decreased range of motion of the left elbow. He states the past 3 days has been unable to fully straighten his arm. He is able to extend it to approximately 160 degrees. He states he has been working out and lifting quite a bit lately, but denies muscular pain, popping sensation after lifting. He denies paresthesias. He states it feels like there is a tight band across the flexor surface of his left elbow that would not quite let it straighten all the way [facility] Medical History Anxiety Depression Hypertension Home Medications fluoxetine 20 mg PO DAILY 05/24/16 [History Last Taken 03/04/20 08:00] bupropion HCl 300 mg PO DAILY 08/03/16 [History Last Taken 03/04/20 08:00] losartan 50 mg PO DAILY 03/04/20 [History Last Taken 03/04/20 08:00] doxycycline monohydrate 100 mg PO BID #20 cap 10/08/20 [Rx Last Taken Unknown] prednisone 60 mg PO DAILY #15 tab 10/04/21 [Rx Last Taken Unknown] Allergy/AdvReac Type Severity Reaction Status Date / Time No Known Allergies Allergy Verified 10/04/21 22:09 Social History Smoking Status: Former smoker ROS ROS ED Constitutional Constitutional ED: Denies chills or fever(s) Eyes Eyes: Denies change in vision ENT ENT ED: Denies sore throat Cardiovascular Cardiovascular: Denies chest pain Respiratory/Chest Respiratory/Chest: Denies cough or dyspnea Gastrointestinal Gastrointestinal: Denies abdominal pain, diarrhea, nausea or vomiting Genitourinary Genitourinary ED: Denies dysuria Musculoskeletal Musculoskeletal: Reports other Details: Left upper extremity decreased range of motion ; Denies back pain Integumentary Denies rash Neurologic Neurologic: Denies headache(s) or weakness Allergic/Immunologic Allergic/Immunologic ED: Denies urticaria EXAM Physical Exam Const Vital Signs: 10/04/21 22:07 Temperature 97.2 F L Temperature Source Temporal Pulse Rate 119 H Respiratory Rate 16 Blood Pressure 164/113 H Blood Pressure Mean 130 Pulse Ox 100 Oxygen Delivery Method Room Air Positive well nourished and well developed General Appearance ED: well developed HEENT normocephalic and atraumatic Eyes PERRL and EOMs intact bilaterally Neck supple Chest Wall inspection of chest normal and palpation of chest normal Resp normal respiratory effort and clear to auscultation bilaterally Cardio regular rate and regular rhythm GI non-tender Palpation: soft Extremity normal to inspection Extremity Narrative: No muscular tenderness with palpation over the left elbow. No focal joint tenderness of the left elbow. Patient not quite able to fully straighten left elbow. Mild tenderness over the biceps tendon. No overlying skin change. Neuro oriented x3 Sensorium / Orientation: alert Skin Lesions: no lesions Rashes: no rashes MDM MDM MDM Narrative Medical decision making narrative: Left elbow x-rays obtained. Radiography Diagnostic Testing: Radiology Impression Elbow X-Ray 10/04/21 23:03 IMPRESSION: Negative left elbow. at 2344 Reported and signed by: Héctor Grove MD Electronically Signed: Héctor Grove MD at 23:42 EST Tel , Service support , Treatment and Re-Evaluation Comments:: Left elbow x-rays unremarkable per my interpretation. Radiologist interpretation is reviewed. I discussed with the patient placing him on a short burst of steroids to see if we can calm down the inflammation in the tendon. He was referred to orthopedics if not improving for further physical therapy. Discharge Plan Triage Chief Complaint: Upper Extremity Injury ED Provider: Corinne Medrano Dx/Rx/DC Orders Clinical Impression: Tendonitis Instructions: ED Tendonitis Prescriptions: New prednisone 20 mg tablet 60 mg PO DAILY Qty: 15 RF: 0 No Action fluoxetine 20 MG capsule 20 mg PO DAILY RF: 0 bupropion HCl 150 MG tablet extended release 24 hr 300 mg PO DAILY RF: 0 losartan 50 MG tablet 50 mg PO DAILY RF: 0 doxycycline monohydrate 100 MG capsule 100 mg PO BID Qty: 20 RF: 0 Primary Care Provider: Jose Cruz Garcia Referrals: Jose Cruz Garcia DO [Primary Care Provider] - Ez Stewart DO [STAFF PHYSICIAN] - 10-14 Days if not better Disposition Disposition: Home, Self Care Discharge Date/Time: 10/05/21 00:31
[2021-10-04] MEDS: predniSONE 20 MG Tablet 60 MG PO (23:59)
== END 2021-10-05 00:31 | disposition home or self-care (01) ==
PROVIDERS: Emergency Provider Emergency Medicine; PCP Student in an Organized Health Care Education/Training Program
DX: M77.8 Other enthesopathies, not elsewhere classified (principal); I10 Essential (primary) hypertension; F32.A Depression, unspecified; F41.9 Anxiety disorder, unspecified; Z79.899 Other long term (current) drug therapy; Z87.891 Personal history of nicotine dependence
CPT/HCPCS: 73080; 99283

== ENCOUNTER 2021-11-18 00:07 | Emergency (ER) | payer MEDICAID, SELFPAY ==
[2021-11-18 00:07] VITALS: BP 182/114; PULSE 120; RESP 18; TEMP 36.3; O2SAT 100; BMI 29.5
--- NOTE | 2021-11-18 01:03 | EKG12_ITS ---
Test Reason : DYSRHYTHMIA Blood Pressure : / mmHG Vent. Rate : 100 BPM Atrial Rate : 100 BPM P-R Int : 152 ms QRS Dur : 092 ms QT Int : 342 ms P-R-T Axes : 039 022 028 degrees QTc Int : 441 ms Normal sinus rhythm Normal ECG Confirmed by CARMINE LONG MD ([id number]), website/blog editor WANDA FARIA ([id number]) on 11/23/2021 10:32:19 AM Referred By: LUCINDA Confirmed By:CARMINE LONG MD
--- NOTE | 2021-11-18 01:39 | EX.ED.DYSGE1 ---
HPI History of Present Illness Chief Complaint: Chest Other Narrative Narrative: Patient is a 26-year-old male who states that about 5 to 7 days ago he was at a [employer] party when he slipped and fell and landed on his left side. He states he did not think too much of it at the time but a day or two later noticed pain in his left rib cage region. He states that a few days after this he also slipped and fell while walking outside. He states that the pain is sharp and stabbing and will worsen with motion but also inspiration. He denies any history of cardiac disease at a young age or illicit drug use. He denies any history of DVT/PE but with the recurrent symptoms presents for evaluation [facility] Medical History Anxiety Depression Hypertension Home Medications fluoxetine 20 mg PO DAILY 05/24/16 [History Last Taken 03/04/20 08:00] bupropion HCl 300 mg PO DAILY 08/03/16 [History Last Taken 03/04/20 08:00] losartan 50 mg PO DAILY 03/04/20 [History Last Taken 03/04/20 08:00] doxycycline monohydrate 100 mg PO BID #20 cap 10/08/20 [Rx Last Taken Unknown] prednisone 60 mg PO DAILY #15 tab 10/04/21 [Rx Last Taken Unknown] methocarbamol 1,000 mg PO Q6H PRN 7 Days #56 tab 11/18/21 [Rx Last Taken Unknown] Allergy/AdvReac Type Severity Reaction Status Date / Time No Known Allergies Allergy Verified 11/18/21 00:09 Social History Smoking Status: Current some day smoker tobacco type: cigarettes ROS ROS ED Constitutional Constitutional ED: Denies chills or fever(s) ENT ENT ED: Denies sore throat Cardiovascular Cardiovascular: Reports chest pain Respiratory/Chest Respiratory/Chest: Denies cough or dyspnea Gastrointestinal Gastrointestinal: Denies abdominal pain, diarrhea, nausea or vomiting Genitourinary Genitourinary ED: Denies dysuria Musculoskeletal Musculoskeletal: Denies myalgias Integumentary Denies Abrasions or rash Neurologic Neurologic: Denies headache(s) Hematologic/Lymphatic Hematologic/Lymphatic: Denies easy bleeding or easy bruising EXAM Physical Exam Const Vital Signs: 11/18/21 00:07 11/18/21 02:34 Temperature 97.4 F L Temperature Source Temporal Pulse Rate 120 H 96 Respiratory Rate 18 16 Blood Pressure 182/114 H 159/94 H Blood Pressure Mean 136 115 Pulse Ox 100 99 Oxygen Delivery Method Room Air Room Air Positive well nourished and well developed General Appearance ED: well developed HEENT Reports moist mucous membranes Eyes PERRL and EOMs intact bilaterally Neck supple Chest Wall Chest Narrative: Patient has pain with palpation along the left posterior rib cage region ribs 4-7 without bony deformity or crepitance. No overlying erythema warmth or ecchymosis Resp normal respiratory effort and clear to auscultation bilaterally Cardio regular rhythm Rate: tachycardic GI normal to inspection, nondistended, normoactive bowel sounds, non-tender, non-distended and no masses Auscultation: normoactive bowel sounds Palpation: soft Back/Spine Back/Spine Narrative: No bony deformity or step-off of the thoracic or lumbar spine no midline pain with palpation Extremity normal to inspection Extremity Narrative: No asymmetric edema no pitting edema negative Homans' sign bilaterally Neuro oriented x3 and CN's II-XII intact bilaterally Sensorium / Orientation: alert Motor Exam: strength 5/5 throughout Psych Psych Narrative: Patient has a nervous/anxious affect Mood & Affect: anxious Skin no rashes or lesions noted Skin Narrative: No overlying soft tissue changes to suggest trauma or infection MDM MDM MDM Narrative Medical decision making narrative: Patient presented to the ER slightly hypertensive and tachycardic but did appear nervous/anxious in nature. He is low risk for cardiac disease and therefore I feel there is not need to be a in-depth cardiac work-up but an EKG and chest x-ray will be obtained. As he is tachycardic I will add a D-dimer to check for possible blood clot the patient has no risk factors for it. His chest x-ray revealed no pneumothorax or infiltrate and no acute rib fracture. EKG was technically normal sinus rhythm at a rate of 100 with no pericarditis or dysrhythmia or acute VT changes. Therefore this time based on his history of pain starting after 2 falls the fact that the x-ray reveals no acute traumatic lung finding and based on his EKG and D-dimer he does not have a PE or acute cardiac event he will be discharged home with symptomatic care Lab Data Attestation: I reviewed the patient's lab results. Labs: Laboratory Results - last 24 hr 11/18/21 01:03 D-Dimer Quant (PE/DVT) 0.41 Discharge Plan Triage Chief Complaint: Chest Other ED Provider: Christopher Tellez Dx/Rx/DC Orders Clinical Impression: Acute chest wall pain Instructions: ED Chest Wall Contusion, ED Strain Chest Wall Prescriptions: New methocarbamol 500 mg tablet 1,000 mg PO Q6H PRN (Reason: Muscle pain/spasm) 7 Days Qty: 56 RF: 0 No Action fluoxetine 20 MG capsule 20 mg PO DAILY RF: 0 bupropion HCl 150 MG tablet extended release 24 hr 300 mg PO DAILY RF: 0 losartan 50 MG tablet 50 mg PO DAILY RF: 0 doxycycline monohydrate 100 MG capsule 100 mg PO BID Qty: 20 RF: 0 prednisone 20 mg tablet 60 mg PO DAILY Qty: 15 RF: 0 Primary Care Provider: Jose Cruz Garcia Referrals: Jose Cruz Garcia DO [Primary Care Provider] - Disposition Disposition: Home, Self Care
--- NOTE | 2021-11-18 01:40 | RAD_ITS ---
STUDY: X-RAY - UNILATERAL RIBS ( LEFT ) WITH CHEST REASON FOR EXAM: Male, 26 years old patient with chest pain. TECHNIQUE - RIBS: 4 view(s) of the ribs. TECHNIQUE - CHEST: Single PA view of the chest. COMPARISON: Chest radiograph dated 08/02/2016. FINDINGS - RIBS: There is subtle deformity of the posterior left ninth rib that suggests sequela of subacute versus old fracture. FINDINGS - CHEST: Bilateral nipple piercings are present. The lungs are clear and expanded. There is no demonstrated pleural abnormality. Normal size heart. Normal mediastinum and radha. There is prominence of the pulmonary hilar arteries without peripheral pulmonary vascular congestion, suggesting pulmonary hypertension. Normal visualized aortic arch and descending thoracic aorta. There are diffuse degenerative changes of the visualized thoracic spine. Normal visualized ribs, clavicles, and shoulders. There is no demonstrated abnormality of the visualized soft tissue structures of the upper abdomen. RAD/Ribs Uni Min 3V w/PA Chest IMPRESSION: RIBS: Findings suggest subacute versus old left-sided rib fracture. CHEST: No radiographic evidence of acute cardiopulmonary disease. Electronically Signed: Irene Shook MD at 2:44 EST , Service support ,
[2021-11-18 02:05] LABS: D-Dimer Quantitative (DVT/PE) 0.41 FEU/ug/m (0.27-0.49)
[2021-11-18 02:34] VITALS: BP 159/94; PULSE 96; RESP 16; O2SAT 99
[2021-11-18 03:23] VITALS: RESP 16
== END 2021-11-18 04:36 | disposition home or self-care (01) ==
PROVIDERS: Emergency Provider Emergency Medicine; PCP Student in an Organized Health Care Education/Training Program
DX: R07.89 Other chest pain (principal); W01.0XXA Fall on same level from slipping, tripping and stumbling without subsequent striking against object, initial encounter; Y93.01 Activity, walking, marching and hiking; Y92.9 Unspecified place or not applicable; F32.A Depression, unspecified; I10 Essential (primary) hypertension; F41.9 Anxiety disorder, unspecified; Z79.899 Other long term (current) drug therapy; F17.210 Nicotine dependence, cigarettes, uncomplicated
CPT/HCPCS: 71101; 85379; 93005; 99283; A4216